=== PATIENT | male | born 1965 | race Caucasian/White ===

== ENCOUNTER 2019-04-13 22:13 | Emergency (ER) | payer SELFPAY ==
[2019-04-13] MEDS ORDERED: Sodium Chloride 0.9% 1000 ML 1,000 ML IV STA (22:34)
[2019-04-13] MEDS ORDERED: Adacel Vial IM ONE ×2 (22:37→22:55)
--- NOTE | 2019-04-13 22:42 | ERPHSYRPT ---
- History of Present Illness Time Seen by Provider: 04/13/19 22:26 Source: patient, EMS Exam Limitations: no limitations Patient Subjective Stated Complaint: Fall Triage Nursing Assessment: Patient brought into ED via EMS and transferred to bed with assit of 4. Patient A+O X 3. Patient states he drank a 12 pack of beer from 0830 until prior to coming in. Patient went to restroom where he was at and was found facedown in a dry bathtub. Patient denies hitting head, but fall was unwitnessed. Patient states he fell into shower pulling the curtain down and landing face first in the bath tub. Patient denies pain or discomfort. Patient able to DIETRICH well. Physician History: PT states, he drank a 12 pack of beer today, he went to the bathroom to urinate , fell, tried to hold on to the shower curtain, but it could not hold him, fell into the bathtub, but denies any injury, LOC, headaches, chest pain, SOB, nausea or other complaints. He is intoxicated but alert and oriented x4. Occurred: just prior to arrival Reason for Fall: lost balance Injuries/Pain Location: no injury Loss of Consciousness: no loss of consciousness Quality: other (denies) Severity of Pain-Max: none Severity of Pain-Current: none Modifying Factors: Improves With: nothing Associated Symptoms (Fall): denies symptoms Allergies/Adverse Reactions: No Known Drug Allergies Allergy (Unverified 04/13/19 22:18) Hx Influenza Vaccination/Date Given: No Hx Pneumococcal Vaccination/Date Given: No Immunizations Up to Date: Yes - Review of Systems Constitutional: No Symptoms Eyes: No Symptoms Ears, Nose, & Throat: No Symptoms Respiratory: No Symptoms Cardiac: No Symptoms Abdominal/Gastrointestinal: No Symptoms Musculoskeletal: No Symptoms Neurological: No Symptoms Psychological: No Symptoms All Other Systems: Reviewed and Negative - Past Medical History Pertinent Past Medical History: Yes Neurological History: No Pertinent History ENT History: No Pertinent History Cardiac History: Hypertension Respiratory History: No Pertinent History Endocrine Medical History: No Pertinent History Musculoskeletal History: No Pertinent History GI Medical History: No Pertinent History History: No Pertinent History Psycho-Social History: No Pertinent History Male Reproductive Disorders: No Pertinent History Other Medical History: Hep C - Past Surgical History Past Surgical History: No Neuro Surgical History: No Pertinent History Cardiac: No Pertinent History Respiratory: No Pertinent History Gastrointestinal: No Pertinent History Genitourinary: No Pertinent History Musculoskeletal: No Pertinent History Male Surgical History: No Pertinent History - Social History Smoking Status: Current every day smoker How long have you smoked: years Exposure to second hand smoke: Yes Drug Use: none Patient Lives Alone: No - Nursing Vital Signs Nursing Vital Signs: Initial Vital Signs Temperature 97.5 F 04/13/19 22:18 Pulse Rate 127 H 04/13/19 22:18 Respiratory Rate 18 04/13/19 22:18 Blood Pressure 91/62 04/13/19 22:18 O2 Sat by Pulse Oximetry 99 04/13/19 22:18 Pain Scale Pain Intensity 0 - [place] Coma Score Best Eye Response ([place]): (4) open spontaneously Best Verbal Response (Isaías): (5) oriented Best Motor Response ([place]): (6) obeys commands [place] Total: 15 - Physical Exam General Appearance: no apparent distress Head Injury: no evidence of injury Eye Exam: PERRL/EOMI, eyes nml inspection ENT Exam: airway nml, No evidence of ENT injury Neck Exam: supple, trachea midline, normal inspection, No mid-line tenderness, No carotid bruit, No JVD Respiratory/Chest Exam: normal breath sounds, No chest tenderness, No ecchymosis , No crepitus, No rales, No rhonchi, No wheezing Cardiovascular Exam: normal heart sounds, regular rate/rhythm, normal peripheral pulses, No murmur, No edema, No JVD Gastrointestinal Exam: soft, normal bowel sounds, No tenderness, No distention, No mass, No ecchymosis, No rebound Back Exam: normal inspection, No CVA tenderness, No vertebral tenderness Extremity Exam: normal inspection, pelvis stable, other (small, superficial abrasion over the right dorsal forearm, no swelling, deformity, good distal pulses and sensation.), No joint swelling Peripheral Pulses: carotid (R): 3+, carotid (L): 3+, dorsalis-pedis (R): 2+, dorsalis-pedis (L): 2+ Neurologic Exam: alert, oriented x 3, cooperative, normal mood/affect, No motor weakness Skin Exam: normal color, warm, dry, No rash, No petechiae, No jaundice, No cyanosis, No diaphoresis SpO2 Interpretation: normal SpO2: 99 O2 Delivery: Room Air - Course Nursing assessment & vital signs reviewed: Yes EKG Interpreted by Me: RATE (123/min), Sinus Tach, NORMAL AXIS, NORMAL QRS, Non- specific ST Changes Ordered Tests: Active Orders 24 hr Category Date Time Status EKG-ER Only STAT Care 04/13/19 22:34 Active IV Insertion STAT Care 04/13/19 22:34 Active CBC W DIFF Stat Lab 04/13/19 23:29 Completed CK-Creatinine Phosphokinase Stat Lab 04/13/19 23:29 Completed CMP Stat Lab 04/13/19 23:29 Completed ETHYL ALCOHOL Stat Lab 04/13/19 23:29 Completed MAGNESIUM Stat Lab 04/13/19 23:29 Completed PROTIME WITH INR Stat Lab 04/13/19 23:29 Completed PTT Stat Lab 04/13/19 23:29 Completed TROPONIN Q3H Lab 04/14/19 01:45 Ordered TROPONIN Q3H Lab 04/14/19 04:45 Ordered TROPONIN Q3H Lab 04/14/19 07:45 Ordered TROPONIN Q3H Lab 04/14/19 10:45 Ordered TROPONIN Stat Lab 04/13/19 23:29 Completed Urine Triage Profile Stat Lab 04/13/19 22:35 Uncollected Medication Summary Discontinued Medications Generic Name Dose Route Start Last Admin Trade Name Freq PRN Reason Stop Dose Admin Diphtheria/Tetanus/Acell Pertussis 0.5 ml 04/13/19 22:37 04/13/19 23:03 Adacel Vial IM 04/13/19 22:38 0.5 ml .ONCE ONE Administration Diphtheria/Tetanus/Acell Pertussis Confirm 04/13/19 22:55 Adacel Vial Administered 04/13/19 22:56 Dose 0.5 ml IM .STK-MED ONE Sodium Chloride 1,000 mls @ 999 mls/hr 04/13/19 22:34 04/14/19 00:25 Sodium Chloride 0.9% 1000 Ml IV 04/13/19 23:34 Infused .Q1H1M STA Infusion Sodium Chloride Confirm 04/13/19 22:54 Sodium Chloride 0.9% 1000 Ml Administered 04/13/19 22:55 Dose 1,000 mls @ ud .ROUTE .STK-MED ONE Lab/Rad Data: Laboratory Result Diagrams 04/13/19 23:29 04/13/19 23:29 Laboratory Results 04/13/19 04/13/19 04/13/19 Range/Units 23:29 23:29 23:29 WBC 7.6 (4.0-10.5) K/mm3 RBC 4.80 (4.1-5.6) M/mm3 Hgb 15.6 (12.5-18.0) gm/dl Hct 47.0 (42-50) % MCV 97.9 (78-100) fl MCH 32.5 H (26-32) pg MCHC 33.2 (32-36) g/dl RDW 13.6 (11.5-14.0) % Plt Count 139 L (150-450) K/mm3 MPV 11.8 H (6-9.5) fl Gran % 54.2 (36.0-66.0) % Eos # (Auto) 0.24 (0-0.5) Absolute Lymphs (auto) 2.73 (1.0-4.6) Absolute Monos (auto) 0.49 (0.0-1.3) Lymphocytes % 35.8 (24.0-44.0) % Monocytes % 6.4 (0.0-12.0) % Eosinophils % 3.1 (0.00-5.0) % Basophils % 0.5 (0.0-0.4) % Absolute Granulocytes 4.12 (1.4-6.9) Basophils # 0.04 (0-0.4) PT 12.6 (8.83-12.87) SECONDS INR 1.11 (0.8-3.0) APTT 31.3 (24.1-36.1) SECONDS Sodium 134 L (137-145) mmol/L Potassium 3.7 (3.5-5.1) mmol/L Chloride 99 (98-107) mmol/L Carbon Dioxide 19 L (22-30) mmol/L Anion Gap 20.5 H (5-15) MEQ/L BUN 7 L (9-20) mg/dL Creatinine 0.67 (0.66-1.25) mg/dL Estimated GFR > 60.0 ML/MIN Glucose 118 H (74-106) mg/dL Calcium 8.3 L (8.4-10.2) mg/dL Magnesium 1.9 (1.6-2.3) mg/dL Total Bilirubin 0.90 (0.2-1.3) mg/dL AST 118 H (17-59) U/L ALT 70 H (0-50) U/L Alkaline Phosphatase 122 (38-126) U/L Creatine Kinase 146 (55-170) U/L Troponin I < 0.012 (0.000-0.034) ng/mL Serum Total Protein 7.8 (6.3-8.2) g/dL Albumin 3.7 (3.5-5.0) g/dL Ethyl Alcohol 252 H (0-10) mg/dL - Progress Progress: improved Progress Note: 04/14/19 00:26 Pt denies any complaints, he remains well controlled, alert and oriented x4, mentally competent, we were unable to perform CT due to his weight (409 lbs), denies headaches, dizziness, denies head injury. He wants to go home with his girlfriend, signs AMA, understood all risks involved in his decision. Counseled pt/family regarding: lab results, diagnosis, need for follow-up, rad results - Departure Departure Disposition: AMA Clinical Impression: Alcohol intoxication Qualifiers: Complication of substance-induced condition: uncomplicated Qualified Code(s): F10.920 - Alcohol use, unspecified with intoxication, uncomplicated Condition: Stable Critical Care Time: No Referrals: DOCTOR,NO FAMILY [Primary Care Provider] - Instructions: Alcohol Poisoning (DC) Additional Instructions: Rest x 1-2 days, drink plenty of fluids, no alcohol! Follow up with your physician next week, return if severe headaches, vomiting, lethargy!
[2019-04-13] MEDS ORDERED: Sodium Chloride 0.9% 1000 ML 1,000 ML ONE (22:54)
[2019-04-13 23:09] VITALS: PULSE 124
[2019-04-13 23:11] VITALS: O2SAT 99
[2019-04-13 23:29] LABS: BASOPHIL % 0.5 % (0.0-0.4); Basophil (Absolute #) 0.04 (0-0.4); Eosinophil % 3.1 % (0.00-5.0); Eosinophil (Absolute #) 0.24 (0-0.5); Granulocyte Absolute (ANC) 4.12 (1.4-6.9); Granulocytes % 54.2 % (36.0-66.0); Hemoglobin 15.6 gm/dl (12.5-18.0); Lymphocyte (Absolute #) 2.73 (1.0-4.6); Lymphocytes % 35.8 % (24.0-44.0); Mean Cell Volume 97.9 fl (78-100); Mean Corpuscular Hemoglobin 32.5 pg (26-32); Mean Corpuscular Hgb Concent. 33.2 g/dl (32-36); Mean Platelet Volume 11.8 fl (6-9.5); Monocytes % 6.4 % (0.0-12.0); Platelet Count 139 K/mm3 (150-450); Red Cell Distribution Width 13.6 % (11.5-14.0); White Blood Count 7.6 K/mm3 (4.0-10.5)
[2019-04-13 23:38] LABS: INR 1.11 (0.8-3.0); PROTIME 12.6 SECONDS (8.83-12.87)
[2019-04-13 23:41] LABS: PTT 31.3 SECONDS (24.1-36.1)
[2019-04-13 23:54] LABS: ALBUMIN 3.7 g/dL (3.5-5.0); ALKALINE PHOSPHATASE 122 U/L (38-126); ANION GAP 20.5 MEQ/L (5-15); BLOOD UREA NITROGEN 7 mg/dL (9-20); CHLORIDE 99 mmol/L (98-107); CK-Creatinine Phosphokinase 146 U/L (55-170); Calcium 8.3 mg/dL (8.4-10.2); Carbon Dioxide 19 mmol/L (22-30); Creatinine 1 0.67 mg/dL (0.66-1.25); ETHYL ALCOHOL 252 mg/dL (0-10); Glucose 118 mg/dL (74-106); MAGNESIUM 1.9 mg/dL (1.6-2.3); Potassium 3.7 mmol/L (3.5-5.1); SGOT/AST 118 U/L (17-59); SGPT/ALT 70 U/L (0-50); SODIUM 134 mmol/L (137-145); Total Protein 7.8 g/dL (6.3-8.2)
[2019-04-14] LABS: TROPONIN < 0.012 ng/mL (0.000-0.034)
[2019-04-14 00:05] VITALS: BP 112/57
== END 2019-04-14 00:35 | disposition left against medical advice (07) ==
LOC: ED 22:13
DX: F10.920 Alcohol use, unspecified with intoxication, uncomplicated (principal)
CPT/HCPCS: 36000; 36415; 80053; 80307; 82550; 83735; 84484; 85025; 85610; 85730; 90471; 90715; 93005; 96360; 99284; G0480